=== PATIENT | female | born 2000 | race Caucasian/White ===

== ENCOUNTER 2021-06-15 22:37 | Emergency (ER) | payer OTHER ==
[~2021-06-15] VITALS: Ht 157.5 cm; Wt 82.0 kg
[2021-06-16 00:30] LABS: CLARITY URINE CLEAR (CLEAR); COLOR URINE YELLOW (YELLOW); KETONES URINE TRACE (NEGATIVE); LEUKOCYTE ESTERASE URINE 1+ (NEGATIVE); NITRITE URINE NEGATIVE (NEGATIVE); OCCULT BLOOD URINE TRACE (NEGATIVE); PH URINE 5.5 (4.5-8.0); PROTEIN URINE NEGATIVE (NEGATIVE); SPECIFIC GRAVITY URINE 1.029 (1.005-1.030)
[2021-06-16] MEDS ORDERED: NITR100C MT (01:37)
[2021-06-16] MEDS ORDERED: CLOT15CR TP (01:38)
[2021-06-16 01:55] VITALS: BP 136/79
== END 2021-06-16 01:56 | disposition home or self-care (01) ==
LOC: ER 22:37
DX: N39.0 Urinary tract infection, site not specified (principal); L25.9 Unspecified contact dermatitis, unspecified cause
CPT/HCPCS: 81003; 81025; 82962; 99283

== ENCOUNTER 2022-02-15 12:31 | Emergency (ER) | payer MEDICAID, OTHER ==
[~2022-02-15] VITALS: Ht 162.6 cm; Wt 80.0 kg
[~2022-02-15 12:31] MED LIST: CLOT15CR TP; NITR100C MT
[2022-02-15 12:39] VITALS: BP 158/78
[2022-02-15] MEDS ORDERED: IBUPROFEN 600MG TABLET PO STA (13:37)
[2022-02-15] MEDS ORDERED: ACETAMINOPHEN 325MG TABLET PO STA (13:37)
[2022-02-15 14:42] LABS: BASOPHILS % 0.3 % (0.0-2.0); EOSINOPHILS % 0.8 % (0.0-5.0); HEMATOCRIT. 42.1 % (36.0-48.0); HEMOGLOBIN. 13.9 g/dL (12.0-16.0); LYMPHOCYTES % 12.7 % (20.0-50.0); MEAN CORPUSCULAR HEMOGLOBIN 28.6 pg (28.0-32.0); MEAN CORPUSCULAR VOLUME 86.5 fL (81.0-99.0); MEAN PLATELET VOLUME 8.3 fl (7.4-10.4); MONOCYTES % 5.9 % (2.0-8.0); NEUTROPHILS % 80.3 % (40.0-76.0); PLATELET 382 x1000/uL (130-400); RED BLOOD CELL COUNT 4.87 mill/uL (4.2-5.4); RED CELL DISTRIBUTION WIDTH 13.1 % (11.6-14.6)
[2022-02-15 14:55] LABS: CHLORIDE 104 mEq/L (98-107)
[2022-02-15 15:20] LABS: CLARITY URINE CLOUDY (CLEAR); COLOR URINE YELLOW (YELLOW); KETONES URINE NEGATIVE (NEGATIVE); LEUKOCYTE ESTERASE URINE 2+ (NEGATIVE); NITRITE URINE NEGATIVE (NEGATIVE); OCCULT BLOOD URINE 1+ (NEGATIVE); PROTEIN URINE NEGATIVE (NEGATIVE); SPECIFIC GRAVITY URINE 1.024 (1.005-1.030); UROBILINOGEN URINE 0.2 E.U./dL (0.2-1.0)
[2022-02-15] MEDS ORDERED: CEPH500C2 MT (15:57)
== END 2022-02-15 16:24 | disposition home or self-care (01) ==
LOC: ER 12:31
DX: N39.0 Urinary tract infection, site not specified (principal); B34.9 Viral infection, unspecified; R07.89 Other chest pain
CPT/HCPCS: 36415; 71045; 80053; 81003; 81025; 84484; 85025; 93005; 99285

== ENCOUNTER 2023-04-17 11:39 | Emergency (ER) | payer MEDICAID, MEDICARE ==
[~2023-04-17] VITALS: Ht 162.6 cm; Wt 82.0 kg
[~2023-04-17 11:39] MED LIST changes: +CEPH500C2 MT
[2023-04-17 11:46] VITALS: BP 135/74; PULSE 75; RESP 16; TEMP 98.6; O2SAT 98
== END 2023-04-17 13:46 | disposition left against medical advice (07) ==
LOC: ER 13:25
DX: R51.9 Headache, unspecified (principal); R11.10 Vomiting, unspecified; Z53.21 Procedure and treatment not carried out due to patient leaving prior to being seen by health care provider